=== PATIENT | male | born 1945 | race Caucasian/White ===

== ENCOUNTER → 2017-05-23 | Outpatient (CLI) | payer MEDICARE, BC ==
[~2017-05-23] MED LIST: ALLOPURINOL300 MG PO; ASPIRIN325 MG PO; CELEBREX200 MG PO; DOXAZOSIN MESYLA8 MG PO; FINASTERIDE5 MG PO; HYDROCODON-ACE1 EAC7 PO; LISINOPRIL2.5 MG PO; LOMOTIL TABLET1 EACH PO; LOPERAMIDE2 M1 PO; METOPROLOL SUC100 MG PO; NAPROXEN SODIU220 MG PO; VITAMIN D2000 UNIT PO; ZESTORETIC 20-1 EAC1 PO
== END | disposition home or self-care (01) ==
LOC: CDC 14:47
DX: Z01.810 Encounter for preprocedural cardiovascular examination (principal); I44.0 Atrioventricular block, first degree; I49.3 Ventricular premature depolarization; I51.7 Cardiomegaly
CPT/HCPCS: 93000